=== PATIENT | male | born 1955 | race African-American/Black ===

== ENCOUNTER 2016-08-18 20:43 | Inpatient (IN) | payer MEDICAID ==
[~2016-08-18] VITALS: Ht 185.4 cm; Wt 83.5 kg
[~2016-08-18 20:43] MED LIST: FERR-63 PO; PROT40 PO
[2016-08-18] MEDS ORDERED: SODIUM CHLORIDE 0.9% 1,000 ML IV ONE (21:10)
[2016-08-18] MEDS ORDERED: PANTOPRAZOLE SODIUM 40 MG/VIAL IV ONE (21:15)
[2016-08-18] MEDS ORDERED: PANTOPRAZOLE 80 MG in SODIUM CHLORIDE 0.9% 100 ML IV SCH ×2 (21:15→21:45)
[2016-08-18 21:43] LABS: BASOPHILS % 1.1 % (0.0-2.0); EOSINOPHILS % 0.8 % (0.0-5.0); LYMPHOCYTES % 18.9 % (20.0-50.0); MEAN CORPUSCULAR HEMOGLOBIN 23.6 pg (28.0-32.0); MEAN CORPUSCULAR VOLUME 73.8 fL (80.0-94.0); MEAN PLATELET VOLUME 8.7 fl (7.4-10.4); MONOCYTES % 8.4 % (2.0-8.0); NEUTROPHILS % 70.8 % (40.0-76.0); PLATELET 189 x1000/uL (130-400); RED BLOOD CELL COUNT 2.73 mill/uL (4.7-6.1); RED CELL DISTRIBUTION WIDTH 18.3 % (11.6-14.6)
[2016-08-18 21:45] LABS: CHLORIDE 108 mEq/L (98-107); PARTIAL THROMBOPLASTIN TIME 23.2 sec (24.0-34.0); PROTHROMBIN TIME 10.4 sec
[2016-08-18 21:47] LABS: CARBON DIOXIDE 27 mEq/L (21-32)
[2016-08-18 21:51] LABS: CREATINE KINASE MB FRACTION 2.8 ng/mL (0.5-3.6); TOTAL IRON BINDING CAPACITY 431 ug/dL (250-450); TROPONIN I 0.02 ng/mL (0.00-0.04)
[2016-08-18 21:55] LABS: HEMATOCRIT. 20.2 % (42.0-52.0); HEMOGLOBIN. 6.5 g/dL (14.0-18.0)
[2016-08-19] MEDS: SODIUM CHLORIDE 0.9% 1,000 ML IV SCH ×2 (00:52→13:28)
[2016-08-19] MEDS ORDERED: ONDANSETRON HCL 4MG/2ML VIAL IV PRN (01:00)
[2016-08-19] MEDS ORDERED: IPRATROPIUM/ALBUTEROL 0.5-3(2.5)MG/3ML NEB INH PRN (01:00)
[2016-08-19] MEDS ORDERED: MORPHINE SULFATE 4 MG/ML CPJ (NOT FOR IM USE) IV ONE (02:15)
[2016-08-19] MEDS ORDERED: ONDANSETRON HCL 4MG/2ML VIAL IV ONE (02:15)
[2016-08-19 07:54] LABS: CARBON DIOXIDE 24 mEq/L (21-32); CHLORIDE 111 mEq/L (98-107); CREATINE KINASE 90 IU/L (39-308); CREATINE KINASE MB FRACTION 2.2 ng/mL (0.5-3.6); TROPONIN I 0.02 ng/mL (0.00-0.04)
[2016-08-19 07:58] LABS: HEMATOCRIT 19.7 % (42.0-52.0); HEMOGLOBIN 6.5 g/dL (14.0-18.0)
[2016-08-19] MEDS ORDERED: EPINEPHRINE 0.1MG/ML (1:10,000) 10ML SYR ONE (08:23)
[2016-08-19] MEDS ORDERED: SIMETHICONE 40 MG/0.6 ML 30ML ONE (10:03)
[2016-08-19] MEDS ORDERED: SODIUM CHLORIDE 0.9% 10ML VIAL ONE (10:03)
[2016-08-19] MEDS ORDERED: PANTOPRAZOLE 80 MG in SODIUM CHLORIDE 0.9% 100 ML IV SCH ×2 (10:30→11:45)
[2016-08-19 12:24] LABS: HEMATOCRIT 20.4 % (42.0-52.0); HEMOGLOBIN 6.6 g/dL (14.0-18.0)
[2016-08-19 12:51] LABS: HEMATOCRIT 22.7 % (42.0-52.0); HEMOGLOBIN 7.2 g/dL (14.0-18.0); MEAN CORPUSCULAR VOLUME 75.6 fL (80.0-94.0); PLATELET 178 x1000/uL (130-400); RED CELL DISTRIBUTION WIDTH 18.7 % (11.6-14.6)
[2016-08-19 13:06] LABS: CLARITY URINE CLEAR (CLEAR); COLOR URINE YELLOW (YELLOW); KETONES URINE 1+ (NEGATIVE); LEUKOCYTE ESTERASE URINE NEGATIVE (NEGATIVE); NITRITE URINE NEGATIVE (NEGATIVE); OCCULT BLOOD URINE NEGATIVE (NEGATIVE); PROTEIN URINE NEGATIVE (NEGATIVE); SPECIFIC GRAVITY URINE 1.022 (1.005-1.030); UROBILINOGEN URINE 0.2 E.U./dL (0.2-1.0)
[2016-08-19 13:17] LABS: *AMPHETAMINES SCREEN URINE NEGATIVE (NEGATIVE); *BARBITURATES SCREEN URINE NEGATIVE (NEGATIVE); *BENZODIAZEPINES SCREEN URINE NEGATIVE (NEGATIVE); *COCAINE SCREEN URINE PRESUMTIVE POSITIVE (NEGATIVE); CANNABINOID URINE SCREEN NEGATIVE (NEGATIVE); METHADONE URINE SCREEN NEGATIVE (NEGATIVE); PHENCYCLIDINE URINE SCREEN NEGATIVE (NEGATIVE)
[2016-08-19] MEDS: DOCUSATE SODIUM 100MG CAPSULE PO SCH ×2 (13:27→17:00)
[2016-08-19] MEDS: FERROUS SULFATE 325MG TABLET PO SCH ×3 (13:27→17:19)
[2016-08-19] MEDS: PANTOPRAZOLE 80 MG in SODIUM CHLORIDE 0.9% 100 ML IV SCH ×2 (13:28→23:34)
[2016-08-19] MEDS: LISINOPRIL 5MG TABLET PO SCH (13:29)
[2016-08-19 13:34] LABS: OPIATES URINE SCREEN PRESUMTIVE POSITIVE (NEGATIVE)
[2016-08-19 15:03] LABS: HEMATOCRIT 22.5 % (42.0-52.0); HEMOGLOBIN 7.2 g/dL (14.0-18.0); MEAN CORPUSCULAR HEMOGLOBIN 24.2 pg (28.0-32.0); PLATELET 172 x1000/uL (130-400); RED BLOOD CELL COUNT 2.97 mill/uL (4.7-6.1); RED CELL DISTRIBUTION WIDTH 18.4 % (11.6-14.6)
[2016-08-19 15:17] LABS: CREATINE KINASE 102 IU/L (39-308); CREATINE KINASE MB FRACTION 2.5 ng/mL (0.5-3.6); TROPONIN I < 0.02 ng/mL (0.00-0.04)
[2016-08-19] MEDS ORDERED: FENTANYL CITRATE/PF 50MCG/ML 2ML VIAL ONE (15:53)
[2016-08-19] MEDS ORDERED: MIDAZOLAM HCL 5 MG/5 ML VIAL ONE (15:54)
[2016-08-19] MEDS ORDERED: FENTANYL CITRATE/PF 50MCG/ML 2ML VIAL IV ONE (16:06)
[2016-08-19] MEDS ORDERED: MIDAZOLAM HCL 2 MG/2 ML VIAL IV PRN (16:09)
[2016-08-19] MEDS ORDERED: ONDANSETRON HCL 4MG/2ML VIAL ONE (16:40)
[2016-08-19] MEDS ORDERED: HYDROMORPHONE HCL/PF 2MG/ML CPJ IM PRN (16:45)
[2016-08-20 01:23] LABS: HEMATOCRIT 25.6 % (42.0-52.0); HEMOGLOBIN 8.3 g/dL (14.0-18.0)
[2016-08-20] MEDS: SODIUM CHLORIDE 0.9% 1,000 ML IV SCH (01:52)
[2016-08-20 06:25] LABS: HEMATOCRIT 23.4 % (42.0-52.0); HEMOGLOBIN 7.7 g/dL (14.0-18.0); MEAN CORPUSCULAR VOLUME 76.4 fL (80.0-94.0); PLATELET 171 x1000/uL (130-400); RED BLOOD CELL COUNT 3.06 mill/uL (4.7-6.1); RED CELL DISTRIBUTION WIDTH 18.4 % (11.6-14.6)
[2016-08-20] MEDS: OMEPRAZOLE 20MG CAPSULE EXTENDED RELEASE PO SCH ×2 (06:31→20:59)
[2016-08-20] MEDS: DOCUSATE SODIUM 100MG CAPSULE PO SCH ×2 (08:36→16:51)
[2016-08-20] MEDS: FERROUS SULFATE 325MG TABLET PO SCH ×3 (08:36→16:51)
[2016-08-20] MEDS: LISINOPRIL 5MG TABLET PO SCH (08:36)
[2016-08-20] MEDS: PANTOPRAZOLE 80 MG in SODIUM CHLORIDE 0.9% 100 ML IV SCH (10:16)
[2016-08-20 18:56] LABS: HEMATOCRIT 28.2 % (42.0-52.0); HEMOGLOBIN 9.2 g/dL (14.0-18.0); MEAN CORPUSCULAR HEMOGLOBIN 25.4 pg (28.0-32.0); PLATELET 176 x1000/uL (130-400); RED BLOOD CELL COUNT 3.61 mill/uL (4.7-6.1)
[2016-08-20 22:00] VITALS: BP 131/76
[2017-03-15] MEDS ORDERED: PROT40 PO (02:47)
[2017-03-15] MEDS ORDERED: LOSA25TA3 PO (02:47)
[2017-03-15] MEDS ORDERED: ATORVASTATIN CALCIUM 10MG TABLET PO SCH (21:00)
[2017-03-18] MEDS ORDERED: OMEP20CA10 PO (11:34)
[2017-03-18] MEDS ORDERED: NICO-786 TD (11:34)
== END 2016-08-20 22:50 | disposition left against medical advice (07) | DRG 241 ==
LOC: ER 21:03 → 5WST 22:21 → EDBEDREQ 22:23 → EDBEDREQTM 22:23 → ENRESERV 08-19 07:57 → CANBEDREQ 08-19 09:29 → 3WST 08-19 11:51
PROVIDERS: ADMIT Internal Medicine; ATTEND Internal Medicine
PROC: 3E0G8GC Introduction of Other Therapeutic Substance into Upper GI, Via Natural or Artificial Opening Endoscopic (ICD-10-PCS; 2016-08-19)
PROC: 0DB68ZX Excision of Stomach, Via Natural or Artificial Opening Endoscopic, Diagnostic (ICD-10-PCS; 2016-08-19)
PROC: 30233N1 Transfusion of Nonautologous Red Blood Cells into Peripheral Vein, Percutaneous Approach (ICD-10-PCS; principal; 2016-08-19 15:30)
DX: K26.4 Chronic or unspecified duodenal ulcer with hemorrhage (principal); I10 Essential (primary) hypertension; J44.9 Chronic obstructive pulmonary disease, unspecified; E44.1 Mild protein-calorie malnutrition; D50.9 Iron deficiency anemia, unspecified; F14.10 Cocaine abuse, uncomplicated; Z53.21 Procedure and treatment not carried out due to patient leaving prior to being seen by health care provider; F17.210 Nicotine dependence, cigarettes, uncomplicated; D62 Acute posthemorrhagic anemia; K21.9 Gastro-esophageal reflux disease without esophagitis; Z87.11 Personal history of peptic ulcer disease; Z88.0 Allergy status to penicillin; Z79.899 Other long term (current) drug therapy; Z68.24 Body mass index [BMI] 24.0-24.9, adult
CPT/HCPCS: 36415; 71010; 80048; 80053; 80305; 81003; 82550; 82553; 83540; 83550; 83735; 83880; 84484; 85014; 85018; 85025; 85027; 85044; 85610; 85730; 86677; 86850; 86900; 86920; 93005; 96365; 96366; 96372; 96375; 96376; 99291; A4216; C9113; G0482; J0171; J1170; J2250; J2270; J2405; J3010; J7030; J7040; J7050; P9016; P9021

== ENCOUNTER 2017-01-07 08:48 | Emergency (ER) | payer MEDICAID, OTHER ==
[~2017-01-07] VITALS: Ht 180.3 cm; Wt 75.0 kg
[2017-01-07] MEDS ORDERED: MAGNESIUM/ALUMINUM HYDROXIDE/SIMETHICONE 30ML UDC PO STA (09:29)
[2017-01-07] MEDS ORDERED: PANTOPRAZOLE SODIUM 40 MG/VIAL IV STA (09:29)
[2017-01-07] MEDS ORDERED: SODIUM CHLORIDE 0.9% 1,000 ML IV ONE (09:29)
[2017-01-07] MEDS ORDERED: MORPHINE SULFATE 4 MG/ML CPJ (NOT FOR IM USE) IV STA (09:29)
[2017-01-07 09:46] LABS: BASOPHILS % 1.1 % (0.0-2.0); EOSINOPHILS % 0.4 % (0.0-5.0); HEMATOCRIT. 41.1 % (42.0-52.0); HEMOGLOBIN. 12.9 g/dL (14.0-18.0); MEAN CORPUSCULAR HEMOGLOBIN 22.4 pg (28.0-32.0); MEAN CORPUSCULAR VOLUME 71.4 fL (80.0-94.0); MEAN PLATELET VOLUME 8.6 fl (7.4-10.4); MONOCYTES % 9.3 % (2.0-8.0); NEUTROPHILS % 74.2 % (40.0-76.0); PLATELET 179 x1000/uL (130-400); RED BLOOD CELL COUNT 5.75 mill/uL (4.7-6.1); RED CELL DISTRIBUTION WIDTH 21.3 % (11.6-14.6)
[2017-01-07] MEDS ORDERED: MORPHINE SULFATE 10 MG/ML CPJ IV NR (09:48)
[2017-01-07 09:52] LABS: PROTHROMBIN TIME 10.7 sec (9.4-11.6)
[2017-01-07 09:58] VITALS: BP 189/119
[2017-01-07 10:00] LABS: CARBON DIOXIDE 27 mEq/L (21-32); CHLORIDE 105 mEq/L (98-107)
[2017-01-07 10:47] LABS: CLARITY URINE CLOUDY (CLEAR); COLOR URINE YELLOW (YELLOW); GLUCOSE URINE NEGATIVE (NEGATIVE); KETONES URINE TRACE (NEGATIVE); LEUKOCYTE ESTERASE URINE NEGATIVE (NEGATIVE); NITRITE URINE NEGATIVE (NEGATIVE); OCCULT BLOOD URINE NEGATIVE (NEGATIVE); PH URINE 6.5 (4.5-8.0); PROTEIN URINE NEGATIVE (NEGATIVE); SPECIFIC GRAVITY URINE 1.017 (1.005-1.030); UROBILINOGEN URINE 0.2 E.U./dL (0.2-1.0)
== END 2017-01-07 12:49 | disposition home or self-care (01) ==
LOC: ER 08:55
DX: K26.9 Duodenal ulcer, unspecified as acute or chronic, without hemorrhage or perforation (principal); K59.00 Constipation, unspecified; J44.9 Chronic obstructive pulmonary disease, unspecified; I10 Essential (primary) hypertension; F17.210 Nicotine dependence, cigarettes, uncomplicated; Z88.0 Allergy status to penicillin
CPT/HCPCS: 36415; 80053; 81001; 83690; 85025; 85610; 96361; 96374; 96375; 99284; C9113; J2270; J7030; Z7610

== ENCOUNTER 2017-03-07 11:41 | Emergency (ER) | payer MEDICAID ==
[~2017-03-07] VITALS: Ht 177.8 cm; Wt 85.0 kg
[2017-03-07 11:47] VITALS: BP 158/96
[2017-03-07] MEDS ORDERED: ONDANSETRON HCL 4MG/2ML VIAL IV STA (14:50)
[2017-03-15] MEDS ORDERED: LOSA25TA3 PO (02:47)
[2017-03-15] MEDS ORDERED: PROT40 PO (02:47)
== END 2017-03-07 15:16 | disposition left against medical advice (07) ==
LOC: ER 11:56
DX: J00 Acute nasopharyngitis [common cold] (principal); Z53.21 Procedure and treatment not carried out due to patient leaving prior to being seen by health care provider

== ENCOUNTER 2017-09-04 08:13 | Emergency (ER) | payer MEDICAID ==
[~2017-09-04] VITALS: Ht 177.8 cm; Wt 85.0 kg
[~2017-09-04 08:13] MED LIST changes: +HYDR-4001 PO; +HYDR12.54 MT; +LOSA25TA3 PO; +NICO-786 TD; +ONDA4TAB5 MT; +PROT40 MT; -PROT40 PO; +SUCR1TAB30 PO
[2017-09-04] MEDS ORDERED: ONDANSETRON HCL 4MG/2ML VIAL IV STA (08:30)
[2017-09-04] MEDS ORDERED: FAMOTIDINE 20MG/2ML VIAL IV STA (08:30)
[2017-09-04] MEDS ORDERED: SODIUM CHLORIDE 0.9% 1,000 ML IV ONE (08:30)
[2017-09-04] MEDS ORDERED: MAGNESIUM/ALUMINUM HYDROXIDE/SIMETHICONE 30ML UDC PO STA (08:30)
[2017-09-04 08:58] LABS: BASOPHILS % 0.9 % (0.0-2.0); EOSINOPHILS % 8.1 % (0.0-5.0); HEMATOCRIT. 28.6 % (42.0-52.0); HEMOGLOBIN. 8.7 g/dL (14.0-18.0); LYMPHOCYTES % 14.2 % (20.0-50.0); MEAN CORPUSCULAR HEMOGLOBIN 18.9 pg (28.0-32.0); MEAN PLATELET VOLUME 8.5 fl (7.4-10.4); MONOCYTES % 8.5 % (2.0-8.0); NEUTROPHILS % 68.3 % (40.0-76.0); PLATELET 278 x1000/uL (130-400); RED BLOOD CELL COUNT 4.62 mill/uL (4.7-6.1); RED CELL DISTRIBUTION WIDTH 22.1 % (11.6-14.6)
[2017-09-04 09:01] LABS: CHLORIDE 100 mEq/L (98-107); INR 1.1; PROTHROMBIN TIME 10.9 sec (9.4-11.6)
[2017-09-04 09:49] LABS: PLATELET ESTIMATE NORMAL
[2017-09-04 10:55] LABS: COLOR URINE YELLOW (YELLOW); KETONES URINE NEGATIVE (NEGATIVE); LEUKOCYTE ESTERASE URINE NEGATIVE (NEGATIVE); NITRITE URINE NEGATIVE (NEGATIVE); OCCULT BLOOD URINE NEGATIVE (NEGATIVE); PROTEIN URINE NEGATIVE (NEGATIVE); SPECIFIC GRAVITY URINE 1.007 (1.005-1.030); UROBILINOGEN URINE 0.2 E.U./dL (0.2-1.0)
[2017-09-04 11:04] LABS: CLARITY URINE CLEAR (CLEAR)
[2017-09-04 15:16] VITALS: BP 135/75
== END 2017-09-04 15:18 | disposition home or self-care (01) ==
LOC: ER 08:18
DX: R10.13 Epigastric pain (principal); E87.6 Hypokalemia; D50.9 Iron deficiency anemia, unspecified; E88.09 Other disorders of plasma-protein metabolism, not elsewhere classified; I10 Essential (primary) hypertension; J44.9 Chronic obstructive pulmonary disease, unspecified; K21.9 Gastro-esophageal reflux disease without esophagitis; F14.10 Cocaine abuse, uncomplicated; Z87.11 Personal history of peptic ulcer disease; Z88.0 Allergy status to penicillin
CPT/HCPCS: 36415; 80053; 81003; 83690; 85025; 85610; 93005; 96361; 96374; 96375; 99285; J2405; J3490; J7030; Z7610

== ENCOUNTER 2020-05-19 16:32 | Inpatient (IN) | payer MEDICARE, MEDICAID ==
[~2020-05-19] VITALS: Ht 185.4 cm; Wt 62.1 kg
[2020-05-19] MEDS ORDERED: SODIUM CHLORIDE 0.9% 1,000 ML IV ONE (17:15)
[2020-05-19 17:28] LABS: BASOPHILS % 0.8 % (0.0-2.0); EOSINOPHILS % 2.1 % (0.0-5.0); HEMATOCRIT. 38.4 % (42.0-52.0); MEAN CORPUSCULAR VOLUME 73.9 fL (80.0-94.0); MONOCYTES % 11.1 % (2.0-8.0); PLATELET 231 x1000/uL (130-400); RED CELL DISTRIBUTION WIDTH 17.5 % (11.6-14.6)
[2020-05-19 17:35] LABS: CHLORIDE 108 mEq/L (98-107)
[2020-05-19 17:39] LABS: ETHANOL BLOOD < 10 mg/dL
[2020-05-19 17:42] LABS: PROTHROMBIN TIME 10.9 sec (9.6-11.0)
[2020-05-19 17:49] LABS: CLARITY URINE CLEAR (CLEAR); COLOR URINE YELLOW (YELLOW); KETONES URINE NEGATIVE (NEGATIVE); LEUKOCYTE ESTERASE URINE NEGATIVE (NEGATIVE); NITRITE URINE NEGATIVE (NEGATIVE); OCCULT BLOOD URINE NEGATIVE (NEGATIVE); PH URINE 5.5 (4.5-8.0); PROTEIN URINE TRACE (NEGATIVE); SPECIFIC GRAVITY URINE 1.022 (1.005-1.030)
[2020-05-19 17:59] LABS: *AMPHETAMINES SCREEN URINE NEGATIVE (NEGATIVE); *BARBITURATES SCREEN URINE NEGATIVE (NEGATIVE)
[2020-05-19 18:01] LABS: *BENZODIAZEPINES SCREEN URINE NEGATIVE (NEGATIVE); *COCAINE SCREEN URINE PRESUMTIVE POSITIVE (NEGATIVE); METHADONE URINE SCREEN NEGATIVE (NEGATIVE); OPIATES URINE SCREEN NEGATIVE (NEGATIVE); PHENCYCLIDINE URINE SCREEN NEGATIVE (NEGATIVE)
[2020-05-19 18:02] LABS: CANNABINOID URINE SCREEN NEGATIVE (NEGATIVE)
[2020-05-19] MEDS ORDERED: ASPIRIN 325MG EC TABLET PO ONE (18:30)
[2020-05-20 01:30] VITALS: BP 144/89
[2020-05-20 01:56] VITALS: BP 144/98
[2020-05-20 04:00] VITALS: BP 143/80
[2020-05-20] MEDS ORDERED: ACETAMINOPHEN 325MG TABLET PO PRN (06:00)
[2020-05-20 07:25] LABS: BASOPHILS % 1.1 % (0.0-2.0); EOSINOPHILS % 2.4 % (0.0-5.0); HEMATOCRIT. 40.4 % (42.0-52.0); HEMOGLOBIN. 12.4 g/dL (14.0-18.0); LYMPHOCYTES % 15.8 % (20.0-50.0); MEAN CORPUSCULAR HEMOGLOBIN 22.6 pg (28.0-32.0); MEAN CORPUSCULAR VOLUME 73.8 fL (80.0-94.0); MEAN PLATELET VOLUME 8.9 fl (7.4-10.4); NEUTROPHILS % 68.7 % (40.0-76.0); PLATELET 242 x1000/uL (130-400); RED BLOOD CELL COUNT 5.48 mill/uL (4.7-6.1)
[2020-05-20 07:38] LABS: CHLORIDE 107 mEq/L (98-107)
[2020-05-20 07:45] LABS: LDL CHOLESTEROL 115 mg/dL (5-100)
[2020-05-20 07:47] LABS: HDL CHOLESTEROL 68 mg/dL (40-59)
[2020-05-20 08:00] VITALS: BP 129/88
[2020-05-20] MEDS ORDERED: ASPIRIN 81MG TABLET PO SCH (09:00)
[2020-05-20] MEDS ORDERED: ENOXAPARIN 40MG/0.4ML SYR SUBCUT SCH (09:00)
[2020-05-20] MEDS ORDERED: GADOTERATE MEGLUMINE 5 MMOL/10 ML VIAL IV ONE (11:48)
[2020-05-20] MEDS ORDERED: ATORVASTATIN CALCIUM 10MG TABLET PO SCH (21:00)
== END 2020-05-20 14:50 | disposition left against medical advice (07) | DRG 180 ==
LOC: ER 16:32 → 5WST 21:10 → EDBEDREQTM 21:12 → EDBEDREQ 21:12 → ENRESERV 23:59
PROVIDERS: ADMIT Internal Medicine; ATTEND Internal Medicine
DX: C34.90 Malignant neoplasm of unspecified part of unspecified bronchus or lung (principal); G93.6 Cerebral edema; C79.31 Secondary malignant neoplasm of brain; J44.1 Chronic obstructive pulmonary disease with (acute) exacerbation; Z53.29 Procedure and treatment not carried out because of patient's decision for other reasons; D64.9 Anemia, unspecified; E88.09 Other disorders of plasma-protein metabolism, not elsewhere classified; R74.8 Abnormal levels of other serum enzymes; I10 Essential (primary) hypertension; G90.8 Other disorders of autonomic nervous system; Z59.0 Homelessness; Z88.0 Allergy status to penicillin; Z87.891 Personal history of nicotine dependence; Z79.899 Other long term (current) drug therapy; F14.10 Cocaine abuse, uncomplicated
CPT/HCPCS: 36415; 70553; 71045; 80053; 80061; 80305; 80320; 81003; 82962; 83036; 84484; 85025; 85379; 93005; 93880; 93970; 97162; 99291; A9577; J1650; J7030; A4315; G0480

== ENCOUNTER 2020-05-24 13:53 | Inpatient (IN) | payer MEDICARE, MEDICAID ==
[~2020-05-24] VITALS: Ht 190.5 cm; Wt 73.2 kg
[2020-05-24] MEDS ORDERED: SODIUM CHLORIDE 0.9% 1,000 ML IV ONE (14:45)
[2020-05-24 15:59] LABS: BASOPHILS % 1.5 % (0.0-2.0); EOSINOPHILS % 1.3 % (0.0-5.0); HEMATOCRIT. 38.3 % (42.0-52.0); HEMOGLOBIN. 12.2 g/dL (14.0-18.0); LYMPHOCYTES % 13.2 % (20.0-50.0); MEAN CORPUSCULAR HEMOGLOBIN 23.1 pg (28.0-32.0); MEAN CORPUSCULAR VOLUME 72.3 fL (80.0-94.0); MEAN PLATELET VOLUME 9.2 fl (7.4-10.4); MONOCYTES % 11.6 % (2.0-8.0); NEUTROPHILS % 72.4 % (40.0-76.0); PLATELET 220 x1000/uL (130-400); RED BLOOD CELL COUNT 5.29 mill/uL (4.7-6.1); RED CELL DISTRIBUTION WIDTH 17.9 % (11.6-14.6)
[2020-05-24 16:08] LABS: CHLORIDE 108 mEq/L (98-107); PROTHROMBIN TIME 11.1 sec (9.6-11.0)
[2020-05-24 16:17] LABS: BETA HYDROXYBUTYRATE 0.2 mMol/L (0.0-0.3)
[2020-05-24 17:40] LABS: CLARITY URINE CLEAR (CLEAR); COLOR URINE YELLOW (YELLOW); KETONES URINE NEGATIVE (NEGATIVE); LEUKOCYTE ESTERASE URINE 2+ (NEGATIVE); NITRITE URINE NEGATIVE (NEGATIVE); OCCULT BLOOD URINE NEGATIVE (NEGATIVE); PROTEIN URINE TRACE (NEGATIVE); SPECIFIC GRAVITY URINE 1.014 (1.005-1.030)
[2020-05-24] MEDS ORDERED: DEXT 5%/0.9% NACL 1,000 ML IV ONE (18:00)
[2020-05-24] MEDS ORDERED: CEFTRIAXONE 1 G PREMIX 50 ML IV ONE (18:00)
[2020-05-24] MEDS ORDERED: AZITHROMYCIN 500 MG TABLET PO ONE (19:15)
[2020-05-25] MEDS ORDERED: CLONIDINE 0.1MG TABLET PO PRN (06:45)
[2020-05-25 09:41] VITALS: BP 142/97
[2020-05-25 12:05] VITALS: BP 144/88
[2020-05-25 12:50] LABS: BASOPHILS % 1.3 % (0.0-2.0); EOSINOPHILS % 1.6 % (0.0-5.0); HEMATOCRIT. 38.5 % (42.0-52.0); HEMOGLOBIN. 12.2 g/dL (14.0-18.0); LYMPHOCYTES % 14.5 % (20.0-50.0); MEAN CORPUSCULAR VOLUME 72.3 fL (80.0-94.0); MEAN PLATELET VOLUME 8.5 fl (7.4-10.4); MONOCYTES % 10.1 % (2.0-8.0); NEUTROPHILS % 72.5 % (40.0-76.0); PLATELET 200 x1000/uL (130-400); RED BLOOD CELL COUNT 5.32 mill/uL (4.7-6.1)
[2020-05-25 12:58] LABS: CHLORIDE 110 mEq/L (98-107)
[2020-05-25 13:08] LABS: *AMPHETAMINES SCREEN URINE NEGATIVE (NEGATIVE); *BARBITURATES SCREEN URINE NEGATIVE (NEGATIVE); CANNABINOID URINE SCREEN NEGATIVE (NEGATIVE); METHADONE URINE SCREEN NEGATIVE (NEGATIVE); OPIATES URINE SCREEN NEGATIVE (NEGATIVE); PHENCYCLIDINE URINE SCREEN NEGATIVE (NEGATIVE)
[2020-05-25 13:09] LABS: *BENZODIAZEPINES SCREEN URINE NEGATIVE (NEGATIVE); *COCAINE SCREEN URINE PRESUMTIVE POSITIVE (NEGATIVE)
[2020-05-25 13:11] LABS: CARCINO EMBRYONIC ANTIGEN 59.4 ng/ml; PROSTRATE SPECIFIC AG TOTAL 0.59 ng/mL (0.0-4.0)
[2020-05-25] MEDS ORDERED: HYDROCODONE/ACETAMINOPHEN 5/325MG TABLET PO PRN (15:45)
[2020-05-25] MEDS ORDERED: MECLIZINE 25MG TABLET PO PRN (15:45)
[2020-05-25] MEDS ORDERED: BISACODYL 10MG SUPP PR PRN (15:45)
[2020-05-25] MEDS ORDERED: IPRATROPIUM/ALBUTEROL 0.5-3(2.5)MG/3ML NEB HHN PRN (15:45)
[2020-05-25] MEDS ORDERED: LACTULOSE 20G/30ML UDC PO PRN (15:45)
[2020-05-25] MEDS ORDERED: ACETAMINOPHEN 325MG TABLET PO PRN (15:45)
[2020-05-25] MEDS ORDERED: ACETAMINOPHEN 650MG SUPP PR PRN (15:45)
[2020-05-25 16:00] VITALS: BP 140/107
[2020-05-25] MEDS: SODIUM CHLORIDE 0.45% 1,000 ML IV SCH (16:18)
[2020-05-25] MEDS ORDERED: CEFTRIAXONE 1,000 MG in DEXTROSE 5% WATER 50 ML IV SCH (18:00)
[2020-05-25] MEDS: DEXAMETHASONE 10 MG/ML VIAL IV SCH (18:52)
[2020-05-25 20:08] VITALS: BP 171/98
[2020-05-25] MEDS: LEVETIRACETAM 500MG PREMIX 100 ML IV SCH (20:55)
[2020-05-25] MEDS: FAMOTIDINE 20MG TABLET PO SCH (20:56)
[2020-05-25] MEDS: CEFTRIAXONE 1,000 MG in DEXTROSE 5% WATER 50 ML IV SCH (22:26)
[2020-05-25 23:46] VITALS: BP 125/87
[2020-05-26] MEDS: DEXAMETHASONE 10 MG/ML VIAL IV SCH ×4 (01:02→18:18)
[2020-05-26 01:59] VITALS: BP 129/100
[2020-05-26 04:00] VITALS: BP 131/75
[2020-05-26] MEDS: SODIUM CHLORIDE 0.45% 1,000 ML IV SCH (05:13)
[2020-05-26 06:30] LABS: CHLORIDE 107 mEq/L (98-107)
[2020-05-26 07:19] LABS: HEMATOCRIT. 38.5 % (42.0-52.0); HEMOGLOBIN. 12.3 g/dL (14.0-18.0); MEAN CORPUSCULAR HEMOGLOBIN 23.1 pg (28.0-32.0); MEAN CORPUSCULAR VOLUME 72.7 fL (80.0-94.0); PLATELET 210 x1000/uL (130-400); RED BLOOD CELL COUNT 5.31 mill/uL (4.7-6.1); RED CELL DISTRIBUTION WIDTH 18.1 % (11.6-14.6)
[2020-05-26 08:00] VITALS: BP 137/92
[2020-05-26] MEDS: LEVETIRACETAM 500MG PREMIX 100 ML IV SCH ×2 (10:12→20:50)
[2020-05-26 10:16] LABS: PLATELET ESTIMATE NORMAL
[2020-05-26 12:00] VITALS: BP 128/89
[2020-05-26 16:00] VITALS: BP 110/65
[2020-05-26] MEDS ORDERED: DEXT 5%/0.45% NACL 500ML 500 ML IV ONE (16:30)
[2020-05-26 20:18] VITALS: BP 109/72
[2020-05-26] MEDS: FAMOTIDINE 20MG TABLET PO SCH (20:50)
[2020-05-26] MEDS: CEFTRIAXONE 1,000 MG in DEXTROSE 5% WATER 50 ML IV SCH (21:33)
[2020-05-27] MEDS: DEXAMETHASONE 10 MG/ML VIAL IV SCH ×3 (00:03→11:33)
[2020-05-27 00:14] VITALS: BP 112/68
[2020-05-27 04:27] VITALS: BP 128/95
[2020-05-27 07:53] LABS: HEMATOCRIT. 37.2 % (42.0-52.0); HEMOGLOBIN. 12.1 g/dL (14.0-18.0); MEAN CORPUSCULAR HEMOGLOBIN 23.5 pg (28.0-32.0); MEAN CORPUSCULAR VOLUME 72.2 fL (80.0-94.0); MEAN PLATELET VOLUME 9.6 fl (7.4-10.4); PLATELET 202 x1000/uL (130-400); RED BLOOD CELL COUNT 5.16 mill/uL (4.7-6.1); RED CELL DISTRIBUTION WIDTH 18.1 % (11.6-14.6)
[2020-05-27 08:00] VITALS: BP 134/90
[2020-05-27 08:01] LABS: CHLORIDE 106 mEq/L (98-107)
[2020-05-27] MEDS: LEVETIRACETAM 500MG PREMIX 100 ML IV SCH (09:31)
[2020-05-27 12:00] VITALS: BP 144/93
[2020-05-27 12:14] LABS: PLATELET ESTIMATE NORMAL
== END 2020-05-27 15:25 | disposition left against medical advice (07) | DRG 73 ==
LOC: ER 13:53 → EDBEDREQTM 19:17 → EDBEDREQ 19:17 → ENRESERV 05-25 06:57 → 7WST 05-25 08:51 → 6WST 05-26 01:37
PROVIDERS: ADMIT Internal Medicine; ATTEND Internal Medicine
DX: G90.8 Other disorders of autonomic nervous system (principal); N17.0 Acute kidney failure with tubular necrosis; C79.31 Secondary malignant neoplasm of brain; J44.1 Chronic obstructive pulmonary disease with (acute) exacerbation; N39.0 Urinary tract infection, site not specified; C78.7 Secondary malignant neoplasm of liver and intrahepatic bile duct; C34.90 Malignant neoplasm of unspecified part of unspecified bronchus or lung; E44.1 Mild protein-calorie malnutrition; D64.9 Anemia, unspecified; E27.8 Other specified disorders of adrenal gland; E88.09 Other disorders of plasma-protein metabolism, not elsewhere classified; F17.200 Nicotine dependence, unspecified, uncomplicated; R59.9 Enlarged lymph nodes, unspecified; G93.9 Disorder of brain, unspecified; Z53.29 Procedure and treatment not carried out because of patient's decision for other reasons; R91.1 Solitary pulmonary nodule; Z20.822 Contact with and (suspected) exposure to COVID-19; Z59.0 Homelessness; Z88.0 Allergy status to penicillin; Z79.899 Other long term (current) drug therapy; I10 Essential (primary) hypertension; R59.0 Localized enlarged lymph nodes; F14.90 Cocaine use, unspecified, uncomplicated; Z68.20 Body mass index [BMI] 20.0-20.9, adult
CPT/HCPCS: 36415; 71045; 71250; 74176; 80048; 80053; 80305; 81003; 82010; 82105; 82378; 82962; 83605; 83735; 84153; 85025; 93005; 97162; 99285; C1893; J0696; J1100; J1953; J7030; J7042; J7060; U0003; G0103